=== PATIENT | female | born 1965 | race Caucasian/White ===

== ENCOUNTER → 2020-12-23 | Outpatient (CLI) | payer BC, OTHER | LOC: KOH-I 14:59 | DX: N13.5 Crossing vessel and stricture of ureter without hydronephrosis (principal) | CPT/HCPCS: 74176 ==

== ENCOUNTER 2022-03-19 16:24 | Emergency (ER) | payer BC, OTHER | END 2022-03-19 20:54 | disposition home or self-care (01) | LOC: ER1 16:24 | DX: Z53.21 Procedure and treatment not carried out due to patient leaving prior to being seen by health care provider (principal) ==